=== PATIENT | female | born 1990 | race Caucasian/White ===

== ENCOUNTER → 2016-10-31 | Outpatient (CLI) | payer BC | LOC: FIMAGING 09:00 | PROVIDERS: ATTEND Psychiatry & Neurology Neurology | DX: M50.222 Other cervical disc displacement at C5-C6 level (principal); M50.223 Other cervical disc displacement at C6-C7 level; M54.81 Occipital neuralgia; G43.009 Migraine without aura, not intractable, without status migrainosus; G47.419 Narcolepsy without cataplexy; R40.4 Transient alteration of awareness ==